=== PATIENT | male | born 1995 | race Asian ===

== ENCOUNTER 2021-03-24 23:25 | Emergency (ER) | payer OTHER ==
[~2021-03-24] VITALS: Ht 167.6 cm; Wt 65.9 kg
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
[2021-03-25] MEDS ORDERED: BOOSTRIX/ADACEL VACCINE (DIPHTH/PERTUSS/ACELL/TETANUS) 0.5ML SYR IM ONE (00:55)
--- OUTSIDE RECORDS SUMMARY | 2021-03-25 01:10 | CCD ---
Author Author [facility] Address Unknown Phone Unavailable Support Name Relationship Address Phone [facility] Next Of Kin [address] [place] [address] Unavailable Re-disclosure Warning The records that you are about to access may contain information from federally-assisted alcohol or drug abuse programs. If such information is present, then the following federally mandated warning applies: This information has been disclosed to you from records protected by federal confidentiality rules (42 CFR part 2). The federal rules prohibit you from making any further disclosure of this information unless further disclosure is expressly permitted by the written consent of the person to whom it pertains or as otherwise permitted by 42 CFR part 2. A general authorization for the release of medical or other information is NOT sufficient for this purpose. The Federal rules restrict any use of the information to criminally investigate or prosecute any alcohol or drug abuse patient.The records that you are about to access may contain highly sensitive health information, the redisclosure of which is protected by Article 27-F of the [facility] Public Health law. If you continue you may have access to information: Regarding HIV / AIDS; Provided by facilities licensed or operated by the [facility] Office of Mental Health; or Provided by the [facility] Office for People With Developmental Disabilities. If such information is present, then the following [facility] mandated warning applies: This information has been disclosed to you from confidential records which are protected by state law. State law prohibits you from making any further disclosure of this information without the specific written consent of the person to whom it pertains, or as otherwise permitted by law. Any unauthorized further disclosure in violation of state law may result in a fine or chcf sentence or both. A general authorization for the release of medical or other information is NOT sufficient authorization for further disc losure. Medications No Information Insurance Providers Payer name Policy type / Coverage type Policy ID Covered constitution party ID Covered constitution party's relationship to juares Policy Juares Plan Information [facility] ACTIVE DUTY [id number] Problems, Conditions, and Diagnoses No Information Surgeries/Procedures No Information Results ID Date Data Source [id number] 05/05/2020 10:59:00 AM EST [facility] Name Value Range Interpretation Code Description Data Yessi rce(s) Supporting Document(s) Rapid Covid Test (Nasal Swab) [facility] This lab was ordered by Abhishek Greer and reported by Abhishek Greer. Procedure Social History No Information
[2021-03-25 01:15] VITALS: BP 119/68
[2021-03-25] MEDS ORDERED: IBUPROFEN 800 MG TAB PO ONE (01:30)
== END 2021-03-25 01:40 | disposition home or self-care (01) ==
LOC: M ED 23:25
DX: S10.93XA Contusion of unspecified part of neck, initial encounter (principal); S40.012A Contusion of left shoulder, initial encounter; S01.01XA Laceration without foreign body of scalp, initial encounter; T14.8XXA Other injury of unspecified body region, initial encounter; R55 Syncope and collapse; V43.52XA Car driver injured in collision with other type car in traffic accident, initial encounter; Y92.411 Interstate highway as the place of occurrence of the external cause; Y93.9 Activity, unspecified; Y99.9 Unspecified external cause status

== ENCOUNTER 2021-04-01 11:43 | Emergency (ER) | payer OTHER ==
[~2021-04-01] VITALS: Ht 167.6 cm; Wt 67.2 kg
[2021-04-01 11:43] VITALS: BP 114/77
--- OUTSIDE RECORDS SUMMARY | 2021-04-01 11:48 | CCD ---
Author Author [facility] Address Unknown Phone Unavailable Support Name Relationship Address Phone [facility] Next Of Kin [address] [place] [address] Unavailable Re-disclosure Warning The records that you [...] is protected by Article 27-F of the [facility] Public Health law. If you continue you may have access to information: Regarding HIV / AIDS; Provided by facilities licensed or operated by the [facility] Office of Mental Health; or Provided by the [facility] Office for People With Developmental Disabilities. If such information is present, then the following [facility] mandated warning applies: This information has been [...] law may result in a fine or penitentiary sentence or both. A general authorization for the release of medical or other information is NOT sufficient authorization for further disc losure. Medications No Information Insurance Providers Payer name Policy type / Coverage type Policy ID Covered constitution party ID Covered constitution party's relationship to juares Policy Juares Plan [facility] ACTIVE DUTY [id number] Problems, Conditions, and Diagnoses No Information Surgeries/Procedures No Information Results ID Date Data Source [id number] 05/05/2020 10:59:00 AM EST [facility] Name Value Range Interpretation Code Description Data Yessi rce(s) Supporting Document(s) Rapid Covid Test (Nasal Swab) [facility] This lab was ordered by Abhishek Greer and reported by Abhishek Greer. Procedure Social History No Information
--- OUTSIDE RECORDS SUMMARY | 2021-04-01 12:50 | CCD ---
Author Author [facility] Address Unknown Phone Unavailable Support Name Relationship Address Phone [facility] Next Of Kin [address] [place] [address] Unavailable Re-disclosure Warning The records that you [...] is protected by Article 27-F of the [facility] Public Health law. If you continue you may have access to information: Regarding HIV / AIDS; Provided by facilities licensed or operated by the [facility] Office of Mental Health; or Provided by the [facility] Office for People With Developmental Disabilities. If such information is present, then the following [facility] mandated warning applies: This information has been [...] law may result in a fine or care home sentence or both. A general authorization for the release of medical or other information is NOT sufficient authorization for further disc losure. Medications No Information Insurance Providers Payer name Policy type / Coverage type Policy ID Covered republican ID Covered republican's relationship to juares Policy Juares Plan [facility] ACTIVE DUTY [id number] Problems, Conditions, and Diagnoses No Information Surgeries/Procedures No Information Results ID Date Data Source [id number] 05/05/2020 10:59:00 AM EST [facility] Name Value Range Interpretation Code Description Data Yessi rce(s) Supporting Document(s) Rapid Covid Test (Nasal Swab) [facility] This lab was ordered by Abhishek Greer and reported by Abhishek Greer. Procedure Social History No Information
== END 2021-04-01 12:50 | disposition home or self-care (01) ==
LOC: M ED 11:43
DX: Z48.02 Encounter for removal of sutures (principal)